=== PATIENT | male | born 1985 | race Caucasian/White ===

== ENCOUNTER 2017-08-22 03:52 | Inpatient (IN) | payer OTHER ==
[~2017-08-22] VITALS: Ht 180.3 cm; Wt 126.8 kg
[2017-08-22] VITALS (7 sets, daily range): BP systolic 116–137; BP diastolic 69–97; Ht 180.3 cm; Wt 126.8 kg
--- NOTE | ~2017-08-22 | EC ---
PATIENT:MAYANK WANG DATE OF SERVICE: 08/22/17 SEX: M MEDICAL RECORD: [id number] DATE OF : [birth year] LOCATION:[facility] AGE OF PATIENT: 32 ADMISSION DATE: 08/22/17 REFERRING PHYSICIAN: INTERPRETING PHYSICIAN: DAVIDA SCHMITZ MD ECHOCARDIOGRAM REPORT ECHO CHARGES 4 ECHO COMPLETE Date: 08/23 CLINICAL DIAGNOSIS: SYNCOPE ECHOCARDIOGRAPHIC MEASUREMENTS (adult normal given) AC root (d.<3.7cm) 3.9 cm LV Septum d (<1.2 cm> 1.6 cm Valve Excursion 1.4 cm LV Septum (systole) 1.9 cm Left Atria (s.<4.0cm> 3.7 cm LVPW d(<1.2cm) 1.5 cm RV (d.<2.3cm) 3.9 cm LVPW (sytole) 2.0 cm LV diastole(<5.6CM) 5.5 cm MV E-F(>70mm/sec) cm LV systole 3.9 cm LVOT Diameter 2.0 cm MV exc.(>10mm) 1.8 cm Est.ejection fraction (50-75%) % DOPPLER: LVIT cm/sec A 54.0 cm/sec E 49.0 cm/sec LA cm/sec RVSP 15 mmHg LVOT 90 cm/sec AOP1/2T m/s Asc. Ao 103 cm/sec RVOT 69 cm/sec RA cm/sec PA 100 cm/sec AV Gradient Peak 4.27 mmHg AV Mean 2.11 mmHg AV Area 3.1 cm MV Gradient Peak 1.5 mmHg MV Mean 0.89 mmHg MV Area cm COMMENTS: Rheumatologist: 2 CHRISTIN CUNNING[place]AM Rolled Gold Plater: 3 Dr. Preston TAPE# PACS Pericardial Effusion N DATE OF SERVICE: 08/23/2017 Adequate 2-D echo, color flow and spectral Doppler, and M-mode. LVH present. LV internal dimension is normal. Wall motion is normal. EF is greater than 55%. Aortic valve is tricuspid. No stenosis by Doppler interrogation. Left atrium is normal. Mitral valve shows no prolapse. Trace MR. Right-sided chambers are grossly normal. Trace TR. TRANSINT:[id number] Voice Confirmation ID: [id number] DOCUMENT ID: [id number] ECHOCARDIOGRAM REPORT [id number] WANG,MAYANK DAVIDA SCHMITZ MD at 1155 CC: [id number] DICTATION DATE: 08/24/17 09 POT PRESS OPERATOR: 08/24/17 1343 DIS IN 08/24/17 [facility] [address] [place] [address]
--- NOTE | ~2017-08-22 | CN ---
PATIENT NAME:MAYANK WANG MEDICAL RECORD: [id number] : [birth year] LOCATION:[facility] ADMIT DATE: 08/22/17 ACCOUNT: [id number] CONSULTING PHYSICIAN: DAVIDA SCHMITZ MD REFERRING PHYSICIAN: LUCY CAMPOS MD DATE OF CONSULTATION: 08/23/2017 HISTORY OF PRESENT ILLNESS: A 32-year-old gentleman with several month history of syncope/falls/weak spells, really no classic symptomology for neurocardiogenic syncope, orthostatic hypotension. No history of diabetes. No syncopal micturition, typically occur in late afternoon, but no other consistent factors and this not in itself an occurrence every time. He reports being dizzy most of time, although again this is not classic vertiginous type symptomatology. We are asked to see him concerning his cardiovascular status. PAST MEDICAL HISTORY: Episodic hypertension. ALLERGIES: INDOMETHACIN, WELLBUTRIN, LATEX. MEDICATIONS: Celexa only. SOCIAL HISTORY: Lives in [place]. He is a nonsmoker, nondrinker. Works. He is able to care of all his ADLs. REVIEW OF SYSTEMS: The patient reports easy bruising but reports no swollen glands. The patient reports no fever, no night sweats, no significant weight gain, no significant weight loss. No significant exercise tolerance. The patient reports no dry eyes, no irritation, no vision change. Patient reports no difficulty hearing and no ear pain. Patient reports no frequent nose bleeds or nose and sinus problems. Patient reports on arm pain on exertion. No shortness of breath while lying down. No history of heart murmur. Patient reports no cough, no wheezing or coughing up blood. Patient reports no abdominal pain, no vomiting. Normal appetite. No diarrhea and not vomiting blood. No nausea and no constipation. Patient reports no incontinence. No difficulty urinating. No hematuria. No increased frequency. Patient reports no muscle aches. No weakness, no arthralgias, no back pain. No swelling of the extremities. Patient reports no abnormal mole, no jaundice, no rashes. Reports no loss of consciousness. No weakness and no numbness. No seizures, dizziness, or headaches. The patient reports no depression, no sleep disturbance, feeling safe in a relationship and no alcohol abuse. Patient reports on fatigue. Reports no runny nose or sinus pressure. No itching, no hives, and no frequent sneezing. PHYSICAL EXAMINATION: GENERAL: Pleasant young gentleman in no acute distress. VITAL SIGNS: Blood pressure 120/75 and pulse 73 and regular. HEENT: Normocephalic, atraumatic. NECK: No JVD or bruit. HEART: Regular. LUNGS: Chan are clear. ABDOMEN: Soft, nontender. EXTREMITIES: Pulses are 2+. There is no edema. DIAGNOSTIC DATA: ECG without acute change. Telemetry shows normal DC interval, normal QRS duration. No significant arrhythmias. CONSULT REPORT [id number] MAYANK WANG IMPRESSION: History is not classic. Current imaging studies reviewed, really nothing obviously here. No evidence of Brugada, etc. We will plan for echocardiographic study, otherwise agree with current workup. No contraindication to discharge from a cardiovascular standpoint. TRANSINT:[id number] Voice Confirmation ID: [id number] DOCUMENT ID: [id number] DAVIDA SCHMITZ MD at 1155 CC: [id number] DICTATION DATE: 08/23/17 0908 DATA MANAGER: 08/23/17 1522 DIS IN 08/24/17 [facility] [id number] [place] [address]
[2017-08-22 07:16] LABS: ANION GAP 15.2 mmol/L (8-16); CALCIUM 9.2 mg/dL (8.5-10.1); CREATININE - SERUM 1.2 mg/dL (0.6-1.3); POTASSIUM - SERUM 4.2 mmol/L (3.5-5.1)
[2017-08-22 07:20] LABS: BASOPHILS 0.1 % (0-2); EOSINOPHILS 2.8 % (0-7); HEMATOCRIT 44.5 % (42.0-54.0); IMMATURE GRANULOCYTES 0.1 % (0-5); LYMPHOCYTES 46.6 % (15-50); MCH 31.4 pg (26.0-34.0); MCV 87.3 fL (80.0-100.0); MEAN PLATELET VOLUME 10.2 fL (7.4-10.4); MONOCYTES 10.1 % (2-11); NEUTROPHILS 40.3 % (40-80); PLATELET COUNT 195 10x3/uL (130-400); RDW 12.3 % (11.5-14.5); WBC 6.8 10x3/uL (4.8-10.8)
[2017-08-22] MEDS ORDERED: CELEXA10 MG PO (10:22)
[2017-08-22] MEDS ORDERED: CELEXA20 MG PO (10:24)
[2017-08-23] VITALS: BP 141/92
[2017-08-23 04:03] VITALS: BP 110/79
[2017-08-23 07:32] VITALS: BP 120/75
[2017-08-23 11:39] VITALS: BP 125/83
[2017-08-23 16:17] VITALS: BP 130/74
[2017-08-23 20:34] VITALS: BP 118/71
[2017-08-24 00:03] VITALS: BP 122/86
[2017-08-24 04:34] LABS: BASOPHILS 0.3 % (0-2); EOSINOPHILS 2.2 % (0-7); HEMATOCRIT 45.2 % (42.0-54.0); IMMATURE GRANULOCYTES 0.2 % (0-5); LYMPHOCYTES 36.5 % (15-50); MCH 30.9 pg (26.0-34.0); MCHC 35.4 g/dL (31.0-37.0); MCV 87.3 fL (80.0-100.0); MEAN PLATELET VOLUME 10.1 fL (7.4-10.4); MONOCYTES 12.2 % (2-11); NEUTROPHILS 48.6 % (40-80); PLATELET COUNT 187 10x3/uL (130-400); RBC 5.18 10x6/uL (4.20-6.10); RDW 12.2 % (11.5-14.5)
[2017-08-24 04:38] LABS: WBC 9.7 10x3/uL (4.8-10.8)
[2017-08-24 05:05] LABS: ANION GAP 12.9 mmol/L (8-16); CALCIUM 8.2 mg/dL (8.5-10.1); CARBON DIOXIDE 28.4 mmol/L (21.0-32.0); CREATININE - SERUM 1.2 mg/dL (0.6-1.3); POTASSIUM - SERUM 4.3 mmol/L (3.5-5.1)
[2017-08-24 07:51] VITALS: BP 133/82
[2017-08-24 11:40] VITALS: BP 125/85
[2017-08-24] MEDS ORDERED: PROTONIX40 MG PO (12:47)
[2017-08-24] MEDS ORDERED: IBUPROFEN600 MG PO (12:48)
[2017-08-24] MEDS ORDERED: MECLIZINE HCL25 MG PO (12:48)
== END 2017-08-24 14:46 | disposition home or self-care (01) | DRG 312 ==
LOC: D.MS 03:52
PROVIDERS: Internal Medicine Nephrology
DX: R55 Syncope and collapse (principal); S00.93XA Contusion of unspecified part of head, initial encounter; W19.XXXA Unspecified fall, initial encounter; E66.9 Obesity, unspecified; Z68.39 Body mass index [BMI] 39.0-39.9, adult